=== PATIENT | male | born 1940 | race Caucasian/White ===

== ENCOUNTER 2016-12-29 14:59 | Day surgery (SDC) | payer MEDICARE ==
[2016-12-29] VITALS (11 sets, daily range): BP systolic 127–155; BP diastolic 64–79; PULSE 52–67; RESP 12–16; O2SAT 98–100
[~2016-12-29] VITALS: Ht 177.8 cm; Wt 76.7 kg
[~2016-12-29 14:59] MED LIST: OMPR20CCR PO
[2016-12-29] MEDS ORDERED: Ondansetron 2 mg/mL 2 mL Inj ONE (15:00)
[2016-12-29] MEDS ORDERED: Glucagon 1 mg/mL Inj ONE ×3 (15:00)
[2016-12-29] MEDS ORDERED: fentaNYL-PF 50 mCg/mL 2 mL Inj ONE (15:00)
[2016-12-29] MEDS ORDERED: Propofol 10,000 mCg/mL 20 mL Inj ONE (15:00)
[2016-12-29] MEDS ORDERED: Rocuronium 10 mg/mL 5 mL Inj ONE (15:00)
[2016-12-29] MEDS ORDERED: Glycopyrrolate 0.2 MG/ML 1mL Inj ONE (15:00)
[2016-12-29] MEDS ORDERED: Neostigmine 1 mg/mL 10 mL Inj ONE (15:00)
[2016-12-29] MEDS ORDERED: Lactated Ringer's 1,000 ML IV ONE ×2 (16:02)
[2016-12-29] MEDS ORDERED: Lactated Ringer's 1,000 ML IV SCH (16:23)
[2016-12-29] MEDS ORDERED: Lactated Ringer's 500 ML IV PRN (16:23)
--- NOTE | 2016-12-29 16:23 | PCM.HPANE ---
Patient Data Date of Service: Dec 29, 2016 (1500) Surgeon Admitting Provider: Attending Provider:Jhonatan Faria MD Primary Care Physician:John Diaz MD Other Provider:Sherley Pina Anesthesia Reason for Visit Cbd Stone Ht/WT & BMI Height (Feet): 5 Height (Inches): 10 Weight (Kilograms): 76.66 Body Mass Index 24.00 Allergies Coded Allergies: Tbbqavn-Ryw-Blh Reductase Inhibitor (Verified Allergy, Severe, MUSCLE CRAMPING, 12/29/16) Past Anesthesia History Anesthesia History: Denies:: Abnormal Airway, Anesthesia Reactions, Difficult Intubation, Fam Anesthesia Reaction, Fam Malignant Hypertherm, Malignant Hyperthermia Diabetes History Hx Diabetes?: No MRSA MRSA: No Medications Reported Medications Omeprazole-Expunged Drug, Do Not Renew! 20 Mg Capsule.dr20 Mg PO DAILY 06/02/13 History HEENT History: Positive for:: Dysphagia (INTERMITTENT SOLIDS) Hearing Problem (MILD) Denies:: Abnormal Airway Difficult Intubation Hx of Heart Problems?: No Cardiovascular History: Denies:: AICD Atrial Fibrillation Chest Pain Congestive Heart Failure Hypertension Pacemaker Valvular Heart Disease Hx of Respiratory Problem?: No Respiratory History: Denies:: Asthma COPD Cough Hemoptysis Pneumonia Tuberculosis Neurological History: Denies:: CVA Hx of GI Problems?: Yes Gastrointestinal History: Positive for:: Gall Bladder Disease Gastroesphageal Reflux Denies:: Cirrhosis Diverticulitis Hiatal Hernia Liver Disease Rectal Bleeding Musculoskeletal History: Denies:: Fibromyalgia Joint Replacement Psycho Social History: Denies:: Anxiety Hx Depression Hx Surgeries?: Yes (PROSTATE, TONSIL, SPINAL TAP X2) Hx Any Other Health Problems?: Yes Hx Diabetes: No Hx Alcohol Use: NoHx Substance Use: No Smoking Status: Never Smoker Stop/Bang Treated for Sleep Apnea?: No Do You Have a CPAP Machine?: No S-Snoring: Do You Snore Loudly: No T-Tired: feel tired, fatigued: No O-Obsered: Observed not breath: No B- Body Mass Index > 35 kg/m2: No A- Age over 50: Yes N- Neck Large Circumference: No G- Gender Male: Yes Risk Assessment Category Category 1A: Patient has history of documented sleep apnea, and HAS NOT received any narcotic, sedative or anesthesia administration during this stay. Category 1B: Patient has history of documented sleep apnea, and HAS received any narcotic , sedative or anesthesia administration during this stay Category 2: Patient has SUSPECTED Obstructive Sleep Apnea, and HAS received any narcotic , sedative or anesthesia administration during this stay. Category 3: Patient has SUSPECTED Obstructive Sleep Apnea and HAS NOT received narcotic, sedative or anesthesia administration during this stay. Category 4: Outpatient in Procedural Areas with known sleep apnea or who screen positive for High Risk via the STOP/BANG questionnaire. Exam Exam Vital Signs Vital Signs Date Time Temp Pulse Resp B/P Pulse Ox O2 Delivery O2 Flow Rate FiO2 12/29/16 15:22 36.2 67 14 141/74 99 Room Air General Appearance: Alert, Oriented X3, Cooperative, No Acute Distress HEENT/AIRWAY: MP 2 Lungs: Clear to Auscultation Heart: Exam Unremarkable Meds/Labs/Diagnostics Admission Meds Current Medications Lactated Ringer's (Lr) 1,000 ml @ ud STK-MED ONCE IV Last administered on 12/29t 16:02; Start 12/29/16 at 16:02; Stop 12/29/16 at 16:04; Status DC Plan Impression Patient chart reviewed, patient interviewed and anesthestic plan with risks, benefits, and alternatives discussed, and informed consent obtained. ASA Physical Status: ASA2 Mod Systemic Disease Anesthetic Plan: GA Bene/Risks/Altern/Consents: Yes HP Complete Prior to Induction: Yes Jose Elias Salinas MD Dec 29, 2016 16:23
[2016-12-29] MEDS ORDERED: Dexamethasone 4 mg/mL Inj IVPUSH PRN (16:25)
[2016-12-29] MEDS ORDERED: MetoCLOpramide 5 mg/mL 2 mL Inj IVPUSH PRN (16:25)
[2016-12-29] MEDS ORDERED: EPHEDrine Sulfate 50 mg/mL Inj IVPUSH PRN (16:25)
[2016-12-29] MEDS ORDERED: fentaNYL-PF 50 mCg/mL 2 mL Inj IVPUSH PRN (16:25)
[2016-12-29] MEDS ORDERED: HYDROmorphone 1 mg/mL Inj IVPUSH PRN (16:25)
[2016-12-29] MEDS ORDERED: Phenylephrine 10,000 mCg/mL Inj IVPUSH PRN (16:25)
[2016-12-29] MEDS ORDERED: Ondansetron 2 mg/mL 2 mL Inj IVPUSH PRN (16:25)
--- NOTE | 2016-12-29 18:41 | DRSVH ---
PROCEDURE: X-RAY E.R.C. BILIARY DUCTS ([id number]) INDICATIONS: 76-year-old male with common bile duct stone on recent CT scan. TECHNIQUE: Fluoroscopic spot films were acquired by the gastroenterology service during ERCP procedu re. COMPARISON: [facility], CT, CT ABD W CON, 12/25/2016, 17:34. FINDINGS: Multiple images from a balloon occlusion cholangiogram were acquired. An oblong filling def ect is noted within the distal common bile duct, distal to the balloon. There is mild extrahepatic bi liary ductal dilation. IMPRESSION: Oval intraluminal filling defect, consistent with distal common bile duct stone correspon ding with CT finding. Dictated by: Raudel Martinez M.D. on 12/29/2016 at 18:36 Approved by: Raudel Martinez M.D. on 12/29/2016 at 18:40
--- NOTE | 2016-12-30 01:57 | ENDO ---
[address] [address] ENDOSCOPY PROCEDURE PATIENT: ROULA GONZALES : 1940 MR#: [id number] ADMIT: 12/29/2016 JOB ID: [id number] DATE OF PROCEDURE: 12/29/2016 PROCEDURE: Endoscopic retrograde cholangiopancreatography with biliary sphincterotomy and stone extraction. INDICATIONS: A 76-year-old male who has had about a month of vague dyspepsia-type symptoms, nausea with eating, food has not tasted very appetizing. He has not had any classic symptoms of biliary colic. In the last two or three weeks he has actually noticed some pruritus. In the last week plus he has had dark urine. It Is uncertain as to whether he has had classic acholic stools. In primary care, liver tests were checked and his bilirubin was in the 5 range. He has not had any symptoms of classic cholangitis. CT scan accomplished and suggested the possibility of a biliary stone versus neoplasia with a slightly dilated distal common bile duct. ERCP is; therefore, pursued. EQUIPMENT: Standard duodenum scope. SEDATION: General anesthesia with endotracheal intubation as provided by Jose Elias Salinas MD. COMPLICATIONS: None identified. PROCEDURE INFORMATION: After the risks and benefits were explained, written and verbal informed consent was obtained. The patient was placed into the prone position following anesthesia and intubation. The scope was introduced into the mouth through the bite block and advanced under indirect visualization to stomach. From there, the scope was guided under direct visualization to the second portion of the duodenum. The major papilla was identified and appeared to be moderately patulous, suggestive of prior passage of stone or stone debris. There was a moderate amount of chapa bile already demonstrated in the stomach and the duodenal mucosa. The major papilla otherwise appeared to be morphologically within normal limits. No obvious neoplasia identified. Using an Olympus 20 mm sphincterotome preloaded with an 0.25 short straight VisiGlide guidewire, we initially found the pancreatic duct with the wire. With wire manipulation only, we were able to then find the biliary tree. This was advanced up into the intrahepatics. Initial contrast injection demonstrated filling defect in the mid CBD. This was of uncertain etiology. Biliary sphincterotomy was accomplished over the wire and appeared quite generous. Contrast and some bile could be seen escaping, but because of the seemingly obstructive pathology in CBD there was not a whole lot of bile seen escaping. Using an 8.5 mm balloon-tipped stone extraction catheter with contrast port below the balloon, we tested the sphincterotomy and it easily came through. There was a small amount of residual sphincter mechanism that did not put up any significant impediment to passing the balloon. I did not see any evidence of a distal stricture on our sweeps of the distal duct. Trying to advance the balloon catheter above the filling defect was a little challenging. What we ultimately accomplished was to create a little vacuum effect by inflating the balloon below the stone and pulling it down and out through the sphincterotomy. The negative pressure created sucked the stone down into the more generously dilated distal biliary tree. I was then able to advance the balloon-tipped catheter above the stone up to near the level of the bifurcation. We inflated the balloon up to a slightly sub 8.5 mm setting and swept the duct. This engaged an obvious oblong stone that was perhaps somewhere in the neighborhood of about 1 cm x about 7 mm or so. On initial attempt, I felt that our balloon was slightly hypoinflated to properly advance this through the sphincterotomy. We released it, adjusted the balloon size up to the full 8.5, re-engaged the stone, and it fairly easily came through our sphincterotomy. Photographs were taken. We then swept the duct on a number of occasions from the [facility] and did not appreciate any further filling defects. There was not a lot a significant dilatation above the level of the stone, at least where we had seen it on initial contrast injection. I did not, however, identify any evidence of a stricture or mass at this location. With negative further sweeps of the duct we elected to terminate the procedure. A 100 mg indomethacin suppository was placed to prophylax against post ERCP pancreatitis. The scope was brought back into the stomach. Excess air and fluid was removed. The scope was then withdrawn from the patient, who seemed to tolerate the procedure well. The patient was extubated and transferred to the PACU in stable condition. FINDINGS: As above, the pancreatic duct received a wire but we did not inject contrast into the pancreatic system. The distal biliary tree was mildly dilated to perhaps about the 9-10 mm range. The filling defect identified in the mid duct turned out to be a moderate-sized brown pigmented stone that was released into the duodenum fairly easily following the sphincterotomy. I did not appreciate any stricturing. There was a little residual sphincter mechanism, but this did not impede the stone passage, nor balloon on multiple sweeps. ENDOSCOPIC DIAGNOSES: Choledocholithiasis, status post biliary sphincterotomy and stone extraction. RECOMMENDATIONS: 1. The patient will be allowed to recover from sedation and it would be anticipated he be discharged home this evening. 2. N.p.o. for the next 4-5 hours. At that point, he can start on clear liquids if he is doing well. From there, he can advanced to his usual diet tomorrow morning. 3. Previous imaging did not demonstrate any evidence of cholelithiasis. With such a generous sphincterotomy and ductal clearance it would at least be debatable as to whether or not he truly needs to have his gallbladder removed. I would elect to repeat some liver tests and perform an abdominal ultrasound in the next week or so to confirm the absence of any retained gallbladder stones. The patient is invited to follow up on these findings in GI clinic with me. At that time, depending on how he is getting on, we could pursue surgical consultation p.r.n.
== END 2016-12-29 23:59 | disposition home or self-care (01) ==
LOC: END 14:59
PROVIDERS: ATTEND Internal Medicine Gastroenterology
DX: K80.50 Calculus of bile duct without cholangitis or cholecystitis without obstruction (principal); R63.4 Abnormal weight loss; K21.9 Gastro-esophageal reflux disease without esophagitis; R63.0 Anorexia
CPT/HCPCS: 43262; 43264; 74328; J1610; J2405; J2710; J3010; J7120; Q9967